=== PATIENT | male | born 1960 | race Caucasian/White ===

== ENCOUNTER 2017-06-30 10:53 | Day surgery (SDC) | payer OTHER ==
[~2017-06-30] VITALS: Ht 182.9 cm; Wt 111.6 kg
[~2017-06-30 10:53] MED LIST: GLIM2TAB PO; HYDR25TA5 PO; LISI40TA PO; LOVA40TA PO; METF1000 PO; OMEP20TA93 PO
[2017-06-30 11:52] LABS: AUTOMATED NEUTROPHIL # 6.3 TH/MM3 (1.8-7.7); BASOPHIL # 0.1 TH/MM3 (0-0.2); BASOPHIL % 1.2 % (0.0-2.0); EOSINOPHIL # 0.2 TH/MM3 (0-0.4); EOSINOPHIL % 1.5 % (0.0-4.0); HEMATOCRIT 44.1 % (39.0-51.0); HEMOGLOBIN 15.9 GM/DL (13.0-17.0); LYMPH % 32.4 % (9.0-44.0); LYMPHOCYTE # 3.4 TH/MM3 (1.0-4.8); MEAN CELL VOLUME 87.8 FL (80.0-100.0); MEAN CORPUSCULAR HEMOGLOBIN 31.6 PG (27.0-34.0); MEAN PLATELET VOLUME 9.6 FL (7.0-11.0); MONO % 5.6 % (0.0-8.0); MONOCYTE # 0.6 TH/MM3 (0-0.9); NEUT % 59.3 % (16.0-70.0); PLATELET COUNT 184 TH/MM3 (150-450); RED BLOOD COUNT 5.02 MIL/MM3 (4.50-5.90); WHITE BLOOD COUNT 10.6 TH/MM3 (4.0-11.0)
[2017-06-30] MEDS ORDERED: LIDOCAINE HCL 1% PF 5 ML SYRINGE OTHER ONE (12:00)
[2017-06-30] MEDS ORDERED: PHENYLEPH/NS 1000 MCG/10 ML SYR IV ONE (12:00)
[2017-06-30] MEDS ORDERED: CHLORHEXIDINE GLUCONATE 2 % 1 PACK (2 CLOTHS) TOPICAL PRN (12:00)
[2017-06-30] MEDS ORDERED: LACTATED RINGER'S 1000 ML IV PRN (12:00)
[2017-06-30] MEDS ORDERED: SODIUM CHLORID 0.9% 500 ML IV PRN (12:00)
[2017-06-30] MEDS ORDERED: PROPOFOL 200 MG/20 ML AMP IV ONE (12:00)
[2017-06-30] MEDS ORDERED: POVIDONE IODINE 5% (ANTISEPSIS KIT) 4 APPLICATIONS EACH NARE PRN (12:00)
[2017-06-30] MEDS ORDERED: METOPROLOL TARTRATE 25 MG TAB PO PRN (12:00)
[2017-06-30 12:03] LABS: PROTHROMBIN TIME - PATIENT 9.8 SEC (9.8-11.6)
[2017-06-30 12:07] LABS: BICARBONATE 26.2 MEQ/L (21.0-32.0); CALCIUM 9.3 MG/DL (8.5-10.1); CREATININE 0.92 MG/DL (0.60-1.30)
--- NOTE | 2017-06-30 14:41 | EKG ---
Date Performed: 06/30/2017 Time Performed: 12:06:21 PTAGE: 57 years EKG: Sinus rhythm INCOMPLETE RIGHT BUNDLE BRANCH BLOCK BORDERLINE ECG NO PREVIOUS TRACING DOCTOR: Terry Tolentino Interpretating Date/Time 06/30/2017 14:32:53
[2017-06-30] MEDS ORDERED: HEPARIN SODIUM - IV 10,000 UNITS/10 ML VIAL ONE (14:48)
[2017-06-30] MEDS ORDERED: HEPARIN-NS/PF INJ 500 ML ONE (14:48)
--- NOTE | 2017-06-30 15:28 | HHI.HP ---
History of Present Illness Chief Complaint: L LE claudication History of Present Illness 57 yo male with L LE claudication, lifestyle limiting Past/Family/Social History Past Medical History HTN XOL DM Past Surgical History none Social History former smoker Family History NC Home Medications Active Scripts Glimepiride (Glimepiride) 2 Mg Tab, 2 MG PO BIDAC for Blood Sugar Management, # 60 TAB 4 Refills Prov:Nelson Reyes MD, R3 05/11/17 Hydrochlorothiazide (Hydrochlorothiazide) 25 Mg Tab, 25 MG PO DAILY, #90 TAB 3 Refills Prov:Nelson Reyes MD, R3 02/13/17 Lisinopril (Lisinopril) 40 Mg Tab, 40 MG PO DAILY for Blood Pressure Management , #90 TAB 3 Refills Prov:Nelson Reyes MD, R3 02/13/17 Metformin (Metformin) 1,000 Mg Tab, 1000 MG PO BIDPC for Blood Sugar Management , #90 TAB 3 Refills With meals Prov:Nelson Reyes MD, R3 02/13/17 Lovastatin (Lovastatin) 40 Mg Tab, 40 MG PO DAILY for Cholesterol Management, # 90 TAB 2 Refills Prov:Nelson Reyes MD, R3 11/24/16 Reported Medications Omeprazole (Omeprazole) 20 Mg Tab, 20 MG PO DAILY, #30 TAB 0 Refills 06/29/17 Discontinued Scripts Omeprazole (Omeprazole) 40 Mg Cap, 40 MG PO DAILY, #30 CAP 3 Refills Prov:Nelson Reyes MD, R3 11/24/16 Coded Allergies: No Known Allergies (Unverified Adverse Reaction, Unknown, 06/30/17) Review of Systems Constitutional: DENIES: Fatigue, Chills Cardiovascular: COMPLAINS OF: Claudication, DENIES: Chest pain Physical Exam Vitals/I&O Date Time Temp Pulse Resp B/P (MAP) Pulse Ox O2 Delivery O2 Flow Rate FiO2 06/30/17 11:15 99.4 79 20 141/80 (100) 97 Neuro: Alert, oriented HEENT: NC/AT Neck: no JVD Heart: reg rate Lungs: clear B Vascular: palpable UE pulses Extremities: no rashes, full ROM Laboratory Tests Test 06/30/17 11:30 White Blood Count 10.6 Red Blood Count 5.02 Hemoglobin 15.9 Hematocrit 44.1 Mean Corpuscular Volume 87.8 Mean Corpuscular Hemoglobin 31.6 Mean Corpuscular Hemoglobin Concent 36.0 Red Cell Distribution Width 13.0 Platelet Count 184 Mean Platelet Volume 9.6 Neutrophils (%) (Auto) 59.3 Lymphocytes (%) (Auto) 32.4 Monocytes (%) (Auto) 5.6 Eosinophils (%) (Auto) 1.5 Basophils (%) (Auto) 1.2 Neutrophils # (Auto) 6.3 Lymphocytes # (Auto) 3.4 Monocytes # (Auto) 0.6 Eosinophils # (Auto) 0.2 Basophils # (Auto) 0.1 CBC Comment AUTO DIFF Differential Comment AUTO DIFF CONFIRMED Prothrombin Time 9.8 Prothromb Time International Ratio 1.0 Blood Urea Nitrogen 12 Creatinine 0.92 Random Glucose 313 Calcium Level 9.3 Sodium Level 134 Potassium Level 3.8 Chloride Level 100 Carbon Dioxide Level 26.2 Anion Gap 8 Estimat Glomerular Filtration Rate 85 CTA reviewed angio in OR Caprini VTE Risk Assessment Caprini VTE Risk Assessment: No/Low Risk (score <= 1) Caprini Risk Assessment Model Point Value = 1 Point Value = 2 Point Value = 3 Point Value = 5 Age 41-60 Minor surgery BMI > 25 kg/m2 Swollen legs Varicose veins or History of unexplained or recurrent spontaneous Oral contraceptives or hormone replacement Sepsis (< 1 month) Serious lung disease, including pneumonia (< 1 month) Abnormal pulmonary function Acute myocardial infarction Congestive heart failure (< 1 month) History of inflammatory bowel disease Medical patient at bed rest Age 61-74 Arthroscopic surgery Major open surgery (> 45 min) Laparoscopic surgery (> 45 min) Malignancy Confined to bed (> 72 hours) Immobilizing plaster cast Central venous access Age >= 75 History of VTE Family history of VTE Factor V Leiden Prothrombin [id number] Lupus anticoagulant Anticardiolipin antibodies Elevated serum homocysteine Heparin-induced thrombocytopenia Other congenital or acquired thrombophilia Stroke (< 1 month) Elective arthroplasty Hip, pelvis, or leg fracture Acute spinal cord injury (< 1 month) Prophylaxis Regimen Total Risk Factor Score Risk Level Prophylaxis Regimen 0-1 Low Early ambulation 2 Moderate Order ONE of the following: *Sequential Compression Device (SCD) *Heparin 5000 units SQ BID 3-4 Higher Order ONE of the following medications: *Heparin 5000 units SQ TID *Enoxaparin/Lovenox 40 mg SQ daily (WT < 150 kg, CrCl > 30 mL/min) *Enoxaparin/Lovenox 30 mg SQ daily (WT < 150 kg, CrCl > 10-29 mL/min) *Enoxaparin/Lovenox 30 mg SQ BID (WT < 150 kg, CrCl > 30 mL/min) AND/OR *Sequential Compression Device (SCD) 5 or more Highest Order ONE of the following medications: *Heparin 5000 units SQ TID (Preferred with Epidurals) *Enoxaparin/Lovenox 40 mg SQ daily (WT < 150 kg, CrCl > 30 mL/min) *Enoxaparin/Lovenox 30 mg SQ daily (WT < 150 kg, CrCl > 10-29 mL/min) *Enoxaparin/Lovenox 30 mg SQ BID (WT < 150 kg, CrCl > 30 mL/min) AND *Sequential Compression Device (SCD) Assessment and Plan Plan Angiogram PACU and home post-op Discharge Planning home tonight [phone] Daughter [phone] Flo Sánchez MD Jun 30, 2017 15:28
[2017-06-30] MEDS ORDERED: ceFAZolin 2 GM PREMIX 50 ML ONE (16:33)
[2017-06-30] MEDS ORDERED: IOHEXOL 300 INJ 50 ML IV ONE (16:48)
--- NOTE | 2017-06-30 17:22 | HHI.PR ---
cc: Flo Sánchez MD Immediate Post Op Note Procedure Date: Jun 30, 2017 Pre Op Diagnosis: PAD, L LE claudication Post Op Diagnosis: PAD, L LE claudication Surgeon: Flo Sánchez Any Commodity Buyer(s): none Procedure: 1. Aortogram 2. L VIK stent (9x40 Zilver) 3. 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
[2017-06-30] MEDS ORDERED: DO NOT ADM ANY ANTICOAGULANT DRUGS PRN (17:32)
[2017-06-30 19:40] VITALS: BP 129/68; PULSE 60; RESP 20; TEMP 97.7; O2SAT 98
--- NOTE | 2017-07-01 07:40 | MP ---
cc: ANDI SÁNCHEZ MD DATE OF SURGERY 06/30/2017 PREOPERATIVE DIAGNOSIS Peripheral arterial occlusive disease and left lower extremity claudication. POSTOPERATIVE DIAGNOSIS Peripheral arterial occlusive disease and left lower extremity claudication. PROCEDURE 1. Aortogram 2. Left common iliac artery stent with a 9 x 40 Zilver. 3. Bilateral common femoral artery Angio-Seal. ATTENDING SURGEON Andi Sánchez MD ANESTHESIA LMA INDICATIONS Mr. Greene is a 57-year-old gentleman with left greater left leg claudication and diminished NOAH's. He is taken to the operating room for angiographic evaluation and treatment. There is no prior catheterization imaging available for my review. DESCRIPTION OF PROCEDURE Informed consent was obtained. The patient was taken to the operating room and placed supine on the operating room table. An appropriate time-out was taken to ensure the patient's identity, operative site and planned procedure. Two grams of Ancef was initiated prior to the skin incision and will be discontinued after a single preoperative dose. Everyone in the room agreed with the time-out and we proceeded. His bilateral groins were prepped and draped and a 21 gauge micropuncture needle was used to access the right common femoral artery. This was exchanged using Seldinger technique for micropuncture sheath through which a 0.035 Glidewire was introduced and the micropuncture sheath was exchanged for a 5-Serbian sheath and a VCF catheter was placed over the wire into the sheath. An aortogram was obtained. Under fluoroscopic guidance, a 21 gauge micropuncture needle was used to access the left common femoral artery. This was exchanged using Seldinger technique for the micropuncture sheath through which a 0.035 Glidewire was introduced. The micropuncture sheath was changed for a 5-Serbian sheath and at this point, the patient was systemically heparinized with 5000 units of IV heparin. Over the Glidewire through the left-hand 5-Serbian sheath, a Berenstein catheter was placed and the glide was changed for a TIME RECORDER wire. Using the TIME RECORDER and Berenstein, we were able to navigate past the common iliac artery occlusion and the Berenstein was advanced up into the aorta. An angiogram confirmed we were in the aorta. A 0.035 Storq wire was advanced through this Berenstein and the Berenstein was removed. A 6-mm balloon was used to pre-dilate the common iliac artery and then a 9 x 40 Zilver self-expanding stent was inserted and deployed and post-dilated to 8 mm. Completion angiogram showed excellent result on recoil extravasation. The wire, catheter and sheath were removed. Both groins were closed with Angio-Seal. There were no complications. I was present and scrubbed for the entire procedure. INTERPRETATION IMAGES The patient has a patent terminal aorta, right common iliac artery, hypogastric artery and left external iliac artery. The left common iliac artery is occluded and then reconstitutes in the distal common iliac artery. The external and hypogastric arteries are patent without any hemodynamically significant stenoses. After angioplasty and stenting, there is excellent result without any recoil extravasation. MD SHIRLEY Colvin/JAYDEN /6:20 PM /7:07 AM
[2017-07-01] MEDS ORDERED: ASPIRIN 325 MG TAB PO SCH (09:00)
== END 2017-06-30 19:40 | disposition home or self-care (01) ==
LOC: HCVO 10:53
PROVIDERS: ATTEND Surgery
DX: I74.5 Embolism and thrombosis of iliac artery (principal); I73.9 Peripheral vascular disease, unspecified; E11.51 Type 2 diabetes mellitus with diabetic peripheral angiopathy without gangrene; I10 Essential (primary) hypertension; Z79.84 Long term (current) use of oral hypoglycemic drugs; Z87.891 Personal history of nicotine dependence; Z01.818 Encounter for other preprocedural examination; Z01.810 Encounter for preprocedural cardiovascular examination
CPT/HCPCS: 00880; 37221; 75710; 80048; 85025; 85610; 93005; C1725; C1769; C1876; J0690; J1644; J2370; J3010; J7120; Q9967